=== PATIENT | female | born 1960 | race Caucasian/White ===

== ENCOUNTER 2017-08-02 08:35 | Emergency (ER) | payer BC ==
[~2017-08-02] VITALS: Ht 170.2 cm; Wt 124.0 kg
[2017-08-02 08:41] VITALS: BP 160/82; PULSE 79; RESP 16; TEMP 97.7; O2SAT 97
[2017-08-02] MEDS ORDERED: METF500T PO (08:50)
[2017-08-02] MEDS ORDERED: MULT-159 (08:50)
[2017-08-02] MEDS ORDERED: LISI2.5T3 PO (08:50)
[2017-08-02] MEDS ORDERED: LIPI10TA PO (08:50)
[2017-08-02] MEDS ORDERED: diphenhydrAMINE HCL 50 MG/ML VIAL IVP ONE (09:00)
[2017-08-02] MEDS ORDERED: EPINEPHrine HCL (1:1000) 1 MG/ML VIAL IM ONE (09:00)
[2017-08-02] MEDS ORDERED: SODIUM CHLORIDE 0.9% FLUSH 10 ML FLUSH IV FLUSH PRN (09:00)
[2017-08-02] MEDS ORDERED: methylPREDNISolone SOD SUCC 125 MG/2 ML VIAL IV PUSH ONE (09:00)
[2017-08-02] MEDS ORDERED: FAMOTIDINE 20 MG/2 ML VIAL IV PUSH ONE (09:00)
--- NOTE | 2017-08-02 09:00 | PD ---
HPI Chief Complaint: Allergic/Adverse Reaction Time Seen by Provider: 08:51 Travel History International Travel<30 days: No Contact w/Intl Traveler<30days: No Traveled to known affect area: No History of Present Illness HPI This patient complains of facial swelling. He is here vacationing and was out at the beach yesterday. She did not put sunscreen on her face but put it everywhere else. Around 1:30 in the morning she developed facial swelling. Today she presents with diffuse swelling of her forehead and cheeks eyelids nose and lips. She is talking and swallowing okay. She denies shortness of breath. She does not have any extremity or torso involvement. Symptoms severity is moderate. No alleviating factors. Duration is 8 hours. Symptoms were exacerbated by sun. No new medications PFSH Past Medical History High Cholesterol: Yes Diabetes: Yes Patient Takes Glucophage: Yes Hypertension: Yes ?: Not Social History Alcohol Use: Yes Tobacco Use: No Substance Use: No Allergies-Medications (Allergen,Severity, Reaction): Coded Allergies: clams (Verified Allergy, Unknown, 08/02/17) Reported Meds & Prescriptions Reported Meds & Active Scripts Active Reported Multivitamins (Multivitamin) 1 Each Tab.chew Lipitor (Atorvastatin Calcium) 10 Mg Tab 10 Mg PO HS Lisinopril 2.5 Mg Tab 2.5 Mg PO DAILY Metformin (Metformin HCl) 500 Mg Tab 1,000 Mg PO DAILY With a meal Review of Systems General / Constitutional: No: Fever Eyes: No: Visual changes HENT: No: Headaches Cardiovascular: Positive: Edema, No: Chest Pain or Discomfort Respiratory: No: Shortness of Breath Gastrointestinal: No: Abdominal Pain Genitourinary: No: Dysuria Musculoskeletal: Positive: Edema, No: Pain Skin: Positive Rash Neurologic: No: Weakness Psychiatric: No: Depression Endocrine: No: Polydipsia Hematologic/Lymphatic: No: Easy Bruising Physical Exam Narrative GENERAL: Well-nourished, well-developed patient in no apparent distress. SKIN: Focused skin assessment reveals no rash and nodules. Skin is Warm and dry. HEAD: Atraumatic. Normocephalic. EYES: Pupils equal and round. No scleral icterus. No injection or drainage. ENT: No nasal bleeding or discharge. Mucous membranes pink and moist. Uvula midline without swelling. There is diffuse macular erythema and swelling of the entire face including chin and cheeks and nose and eyelids and forehead NECK: Trachea midline. No JVD. CARDIOVASCULAR: Regular rate and rhythm. No murmur appreciated. RESPIRATORY: No accessory muscle use. Clear to auscultation. Breath sounds equal bilaterally. GASTROINTESTINAL: Abdomen soft, non-tender, nondistended. Hepatic and splenic margins not palpable. MUSCULOSKELETAL: No obvious deformities. No clubbing. No cyanosis. No edema. NEUROLOGICAL: Awake and alert. No obvious cranial nerve deficits. Motor grossly within normal limits. Normal speech. PSYCHIATRIC: Appropriate mood and affect; insight and judgment normal. Data Data Last Documented VS Vital Signs Date Time Temp Pulse Resp B/P (MAP) Pulse Ox O2 Delivery O2 Flow Rate FiO2 08/02/17 09:43 74 20 132/83 (99) 95 08/02/17 08:41 97.7 Orders Orders Ecg Monitoring (08/02/17 08:56) Iv Access Insert/Monitor (08/02/17 08:56) Oximetry (08/02/17 08:56) Diphenhydramine Inj (Benadryl Inj) (08/02/17 09:00) Methylprednisolone So Succ Inj (Solumedr (08/02/17 09:00) Famotidine Inj (Pepcid Inj) (08/02/17 09:00) Sodium Chloride 0.9% Flush (Ns Flush) (08/02/17 09:00) Epinephrine (1:1000) Inj (Adrenalin (1:1 (08/02/17 09:00) MDM Medical Decision Making Medical Screen Exam Complete: Yes Emergency Medical Condition: Yes Medical Record Reviewed: Yes Differential Diagnosis Allergic reaction, Escobar-Jamin syndrome, anaphylaxis Narrative Course I have reviewed the patient's electronic medical record. Patient has diffuse facial swelling. Given the proximity to airway structures , I proceed with aggressive treatment. IV placed Extended cardiac monitoring shows sinus rhythm without ectopy Oximetry does not show any hypoxia I gave her intramuscular epinephrine followed by IV Solu-Medrol and Benadryl and H2 deo I observed her for a while with frequent evaluations On final recheck she does seem clinically improved but still has macular erythema and some swelling. Stable for outpatient follow-up 5 days of prednisone prescribed she will continue antihistamine and avoid sun exposure Diagnosis Primary Impression: Acute allergic reaction Qualified Codes: T78.40XA - Allergy, unspecified, initial encounter Additional Instructions: The patient was advised to follow up with their physician and return if they worsen. Med/Other Pt SpecificInfo: Prescription(s) given Scripts Prednisone (Prednisone) 20 Mg Tab 40 MG PO DAILY, #10 TAB 0 Refills Take 40 mg (2 tablets) daily for 5 days Prov: Anand Rosales MD 08/02/17 Disposition: 01 DISCHARGE HOME Condition: Stable Anand Rosales MD Aug 02, 2017 09:00
[2017-08-02 09:15] VITALS: O2SAT 98
[2017-08-02 09:43] VITALS: BP 132/83; PULSE 74; RESP 20; O2SAT 95
[2017-08-02] MEDS ORDERED: PRED20 PO (10:29)
== END 2017-08-02 10:41 | disposition home or self-care (01) ==
LOC: PHEFT 08:35
DX: T78.40XA Allergy, unspecified, initial encounter (principal); E11.9 Type 2 diabetes mellitus without complications; E78.00 Pure hypercholesterolemia, unspecified; I10 Essential (primary) hypertension
CPT/HCPCS: 96372; 96374; 96375; 99284; J0171; J1200; J2930